=== PATIENT | female | born 1965 | race African-American/Black ===

== ENCOUNTER 2017-08-21 09:10 | Emergency (ER) | payer SELFPAY ==
[~2017-08-21] VITALS: Ht 167.6 cm; Wt 90.7 kg
[2017-08-21] MEDS ORDERED: KETOROLAC TROMETHAMINE 30 MG/ML VIAL IV ONE (10:15)
[2017-08-21] MEDS ORDERED: PROMETHAZINE HCL (IM) 25 MG/ML VIAL IM ONE (10:15)
[2017-08-21] MEDS ORDERED: SODIUM CHLORIDE 0.9% 1000ML 1,000 ML ONE (10:15)
[2017-08-21] MEDS ORDERED: PANTOPRAZOLE 40 MG 10ML VIAL IV ONE (10:15)
[2017-08-21] MEDS ORDERED: EXCEDRIN MIGRA1 EAC3 PO (11:57)
[2017-08-21] MEDS ORDERED: PEPCID20 MG PO (11:58)
== END 2017-08-21 12:15 | disposition home or self-care (01) ==
LOC: FSED 09:10
DX: G43.909 Migraine, unspecified, not intractable, without status migrainosus (principal); M54.2 Cervicalgia
CPT/HCPCS: 80053; 85025; 99284; J1885; J2550; J7030